=== PATIENT | male | born 1960 | race Caucasian/White ===

== ENCOUNTER → 2018-03-25 | Outpatient (CLI) | payer BC ==
[2018-03-25 09:13] LABS: HEMOGLOBIN 15.6 g/dl (13.5-17.5); MEAN CORPUSCULAR HEMOGLOBIN 30.5 pg (27.0-33.0); MEAN CORPUSCULAR HGB CONC 35.5 g/dl (32.0-36.5); MEAN CORPUSCULAR VOLUME 85.9 fl (80.0-96.0); PLATELET COUNT, AUTOMATED 168 10^3/uL (150-450); RED BLOOD COUNT 5.12 10^6/uL (4.30-6.10); RED CELL DISTRIBUTION WIDTH 13.2 % (11.5-14.5); WHITE BLOOD COUNT 10.1 10^3/uL (4.0-10.0)
[2018-03-25 09:36] LABS: ANION GAP 7 MEQ/L (8-16); BLOOD UREA NITROGEN 8 MG/DL (7-18); CALCIUM LEVEL 8.6 MG/DL (8.5-10.1); CARBON DIOXIDE LEVEL 30 MEQ/L (21-32); CHLORIDE LEVEL 103 MEQ/L (98-107); CHOLESTEROL LEVEL 145 MG/DL (<200); CHOLESTEROL RISK RATIO 3.536 (<5); CREATININE FOR GFR 0.74 MG/DL (0.70-1.30); GLOMERULAR FILTRATION RATE > 60.0 (>56); GLUCOSE, FASTING 108 MG/DL (70-100); HDL CHOLESTEROL 41 MG/DL (>40); LDL CHOLESTEROL 82.8 MG/DL (<100); NON-HDL-C 104 MG/DL; POTASSIUM SERUM 3.8 MEQ/L (3.5-5.1); SODIUM LEVEL 140 MEQ/L (136-145); TRIGLYCERIDES LEVEL 106 MG/DL (<150)
== END ==
LOC: M WUC 08:11
DX: I25.10 Atherosclerotic heart disease of native coronary artery without angina pectoris (principal); E78.5 Hyperlipidemia, unspecified
CPT/HCPCS: 80061

== ENCOUNTER 2019-10-17 05:05 | Emergency (ER) | payer BC ==
[~2019-10-17] VITALS: Ht 170.2 cm; Wt 80.9 kg
[~2019-10-17 05:05] MED LIST: ALDA25TA2 PO; ALTA1CAP3 PO; AMLO25TA PO; ASPI81TA85 PO; CRES20TA2 PO; DOXE75CA2 PO; FURO40TA2 PO; LISI-538 PO; LORA1TAB4 PO; LORA2TAB14 PO; NICO7DIS2 TD; OMEP1CAP73 PO; RAMI1CAP24 PO; SERT-141 PO; TRAZ-252 PO; TRAZ1TAB6 PO; ZOLO50TA PO
[2019-10-17] MEDS ORDERED: HYDR12.55 PO (05:22)
[2019-10-17] MEDS ORDERED: ROSU20TA5 PO (05:22)
[2019-10-17] MEDS ORDERED: LOSA100T50 PO (05:22)
[2019-10-17] MEDS ORDERED: AMLO25TA PO (05:22)
[2019-10-17 06:17] LABS: BASO # 0.1 10^3/uL (0.0-0.2); BASO % 0.5 % (0.0-1.0); EOS # 0.2 10^3/uL (0.0-0.5); EOS % 1.4 % (0.0-3.0); HEMATOCRIT 45.5 % (42.0-52.0); HEMOGLOBIN 14.7 g/dl (13.5-17.5); LYMPH # 1.5 10^3/uL (1.5-5.0); LYMPH % 14.3 % (24.0-44.0); MEAN CORPUSCULAR HGB CONC 32.3 g/dl (32.0-36.5); MEAN CORPUSCULAR VOLUME 89.7 fl (80.0-96.0); MONO # 1.4 10^3/uL (0.0-0.8); MONO % 13.6 % (0.0-5.0); NEUTROPHILS # 7.4 10^3/uL (1.5-8.5); NEUTROPHILS % 69.8 % (36.0-66.0); PLATELET COUNT, AUTOMATED 169 10^3/uL (150-450); RED BLOOD COUNT 5.07 10^6/uL (4.30-6.10); WHITE BLOOD COUNT 10.6 10^3/uL (4.0-10.0)
[2019-10-17 06:38] LABS: ALBUMIN 3.5 GM/DL (3.2-5.2); ALT/SGPT 30 U/L (12-78); BILIRUBIN,DIRECT 0.2 MG/DL (0.0-0.2); BILIRUBIN,TOTAL 0.6 MG/DL (0.2-1.0); BLOOD UREA NITROGEN 11 MG/DL (7-18); CALCIUM LEVEL 8.8 MG/DL (8.5-10.1); CARBON DIOXIDE LEVEL 29 MEQ/L (21-32); CHLORIDE LEVEL 108 MEQ/L (98-107); CREATININE FOR GFR 0.65 MG/DL (0.70-1.30); GLOMERULAR FILTRATION RATE > 60.0 (>56); GLUCOSE, FASTING 112 MG/DL (70-100); LIPASE 123 U/L (73-393); SODIUM LEVEL 142 MEQ/L (136-145); TOTAL PROTEIN 7.4 GM/DL (6.4-8.2)
[2019-10-17 07:04] LABS: CK-MB VALUE MASS 1.6 NG/ML (<3.6); CPK CREATINE PHOSPHOKINASE 142 U/L (39-308); MB/CK RELATIVE INDEX 1.13 (< OR =4); TROPONIN I < 0.02 NG/ML (< 0.10)
--- NOTE | 2019-10-17 08:12 | REP ---
Chest x-ray: Two views. History: Epigastric pain and shortness of breath. Comparison chest x-ray: January 31, 2016. Findings: The patient is status post prior median sternotomy. The lungs are well inflated and clear. The pleural angles are sharp. Heart size is normal. Pulmonary vasculature is not increased. No significant bony abnormality is seen. Monitoring electrodes are noted. Impression: No acute disease. Prior sternotomy. Electronically Signed by Eben Saunders MD 10/17/2019 08:03 A
[2019-10-17] MEDS ORDERED: NS 1,000 ML IV ONE (08:15)
[2019-10-17] MEDS ORDERED: ALBUTEROL SULFATE 2.5 MG/0.5 ML INH NEB SOLN NEB ONE (08:15)
[2019-10-17] MEDS ORDERED: GI COCKTAIL 50ML BTL(HYOSCYAMINE/MAALOX/LIDOCAINE VISCOUS)(1:3:1) PO ONE (08:30)
[2019-10-17] MEDS ORDERED: amLODIPine 5 MG TAB PO ONE (12:00)
[2019-10-17 12:01] VITALS: BP 166/89
[2019-10-17 12:14] LABS: CK-MB VALUE MASS 1.2 NG/ML (<3.6); MB/CK RELATIVE INDEX 1.19 (< OR =4); TROPONIN I 0.02 NG/ML (< 0.10)
[2019-10-17] MEDS ORDERED: ZANT150T40 PO (12:27)
[2019-10-17 12:45] VITALS: BP 169/94
--- NOTE | 2019-10-17 20:27 | ECGEPIP ---
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
--- NOTE | 2019-10-17 20:30 | ECGEPIP ---
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
== END 2019-10-17 13:07 | disposition home or self-care (01) ==
LOC: M ED 05:05
DX: R10.13 Epigastric pain (principal); I10 Essential (primary) hypertension; F41.9 Anxiety disorder, unspecified; Z86.73 Personal history of transient ischemic attack (TIA), and cerebral infarction without residual deficits; Z95.1 Presence of aortocoronary bypass graft; F17.210 Nicotine dependence, cigarettes, uncomplicated; Z79.83 Long term (current) use of bisphosphonates; Z79.899 Other long term (current) drug therapy

== ENCOUNTER → 2021-01-05 | Outpatient (REF) | payer BC ==
[~2021-01-05] MED LIST changes: -ASPI81TA85 PO; +ASPI81TA86 PO; +HYDR12.55 PO; -LISI-538 PO; +LISI20TA33 PO; +LOSA100T50 PO; +ROSU20TA5 PO; +ZANT150T40 PO
[2021-01-05 18:18] LABS: BASO # 0.1 10^3/uL (0.0-0.2); BASO % 0.6 % (0.0-1.0); EOS # 0.2 10^3/uL (0.0-0.5); EOS % 1.7 % (0.0-3.0); HEMATOCRIT 46.8 % (42.0-52.0); HEMOGLOBIN 16.1 g/dl (13.5-17.5); LYMPH # 2.4 10^3/uL (1.5-5.0); LYMPH % 20.4 % (24.0-44.0); MEAN CORPUSCULAR HEMOGLOBIN 31.9 pg (27.0-33.0); MEAN CORPUSCULAR HGB CONC 34.4 g/dl (32.0-36.5); MEAN CORPUSCULAR VOLUME 92.7 fl (80.0-96.0); MONO # 1.5 10^3/uL (0.0-0.8); MONO % 12.8 % (2.0-8.0); NEUTROPHILS # 7.6 10^3/uL (1.5-8.5); NEUTROPHILS % 64.1 % (36.0-66.0); PLATELET COUNT, AUTOMATED 204 10^3/uL (150-450); RED BLOOD COUNT 5.05 10^6/uL (4.30-6.10)
[2021-01-05 18:51] LABS: ERYTHROCYTE SEDIMENTATION RATE 8 mm/hr (0-20)
[2021-01-05 18:52] LABS: WHITE BLOOD COUNT 11.8 10^3/uL (4.0-10.0)
[2021-01-05 21:43] LABS: ALBUMIN 4.3 GM/DL (3.2-5.2); ALT/SGPT 52 U/L (12-78); BILIRUBIN,TOTAL 0.6 MG/DL (0.2-1.0); BLOOD UREA NITROGEN 14 MG/DL (7-18); CALCIUM LEVEL 10.7 MG/DL (8.8-10.2); CARBON DIOXIDE LEVEL 25 MEQ/L (21-32); CHLORIDE LEVEL 102 MEQ/L (98-107); CHOLESTEROL LEVEL 169 MG/DL (<200); CHOLESTEROL RISK RATIO 3.129 (<5); CREATININE FOR GFR 0.77 MG/DL (0.70-1.30); GLOMERULAR FILTRATION RATE > 60.0 (>49); GLUCOSE, FASTING 100 MG/DL (70-100); HDL CHOLESTEROL 54 MG/DL (>40); LDL CHOLESTEROL 85 MG/DL (<100); NON-HDL-C 115 MG/DL; POTASSIUM SERUM 4.2 MEQ/L (3.5-5.1); SODIUM LEVEL 135 MEQ/L (136-145); TOTAL PROTEIN 8.3 GM/DL (6.4-8.2); TRIGLYCERIDES LEVEL 151 MG/DL (<150)
[2021-01-06 13:27] LABS: TOTAL 25(OH) VITAMIN D 8.4 NG/ML (30.0-100.0)
[2021-01-07 15:07] LABS: ANTINUCLEAR ANTIBODIES DIRECT Negative (Negative)
== END ==
LOC: M LAB REF 16:32
PROVIDERS: ATTEND Pediatrics
DX: M15.9 Polyosteoarthritis, unspecified (principal); I10 Essential (primary) hypertension; E78.5 Hyperlipidemia, unspecified

== ENCOUNTER → 2021-01-18 | Outpatient (CLI) | payer BC ==
[~2021-01-18] MED LIST changes: +ISOVUE-370 76% 100ML VIAL As Ordered ONE
--- NOTE | 2021-01-18 08:18 | REPVR ---
PROCEDURE INFORMATION: Exam: CT Neck With Contrast Exam date and time: 01/18/2021 7:15 AM Age: 60 years old Clinical indication: Mass, lump, or swelling in neck; Additional info: Mass of neck left TECHNIQUE: Imaging protocol: Computed tomography images of the neck with contrast. Radiation optimization: All CT scans at this facility use at least one of these dose optimization techniques: automated exposure control; mA and/or kV adjustment per patient size (includes targeted exams where dose is matched to clinical indication); or iterative reconstruction. Contrast material: ISOVUE 370; Contrast volume: 75 ml; Contrast route: INTRAVENOUS (IV); COMPARISON: MRA CAROTID W/O FOL WITH 12/02/2015 9:32 AM FINDINGS: Paranasal sinuses: Retention cyst in the left maxillary sinus. Nasopharynx: Unremarkable. Oropharynx: Ill-defined nodular mucosal fullness along the right aspect the oropharynx with effacement of normal adjacent planes. Hypopharynx: Unremarkable. Larynx: Unremarkable. Normal epiglottis. Retropharyngeal space: Unremarkable. Submandibular/Parotid glands: Normal. Glands are normal in size. Thyroid: Normal. No enlarged or calcified nodules. Lymph nodes: Unremarkable. No lymphadenopathy. Trachea: Visualized trachea is unremarkable. Lungs: Unremarkable as visualized. Bones/joints: Multilevel degenerative disease. Stenosis of the spinal canal at several levels most pronounced at C3-C4, C5-C6, and C6-C7. Multilevel neural foraminal stenosis status post median sternotomy. Vasculature: Adjacent centrally necrotic lymphadenopathy appears to encase and occlude right jugular vein. Soft tissues: Unremarkable. No significant soft tissue swelling. IMPRESSION: Ill-defined nodular mucosal fullness along the right aspect the oropharynx with effacement of normal adjacent planes. Adjacent centrally necrotic lymphadenopathy appears to encase and occlude right jugular vein. Neoplastic etiology is favored. Electronically signed by: Jose Causey On 01/18/2021 08:17:44 AM
== END ==
LOC: M RAD 06:22
PROVIDERS: ATTEND Pediatrics
DX: R22.1 Localized swelling, mass and lump, neck (principal)
CPT/HCPCS: 70491; Q9967

== ENCOUNTER → 2021-01-31 | Outpatient (CLI) | payer BC ==
[~2021-01-31] MED LIST changes: -ISOVUE-370 76% 100ML VIAL As Ordered ONE
--- NOTE | 2021-02-01 08:08 | REP ---
INDICATION: NICOTINE DEPEND COMPARISON: None. TECHNIQUE: Axial noncontrast images from the thoracic inlet to the upper abdomen using low-dose lung screening technique (LDCT). FINDINGS: The bilateral lung you are relatively well aerated, essentially symmetric and clear. No consolidation, suspicious nodule or mass lesion. No effusion. No pneumothorax. Tracheobronchial tree is patent. IMPRESSION: Lung-RADS category 1. No suspicious nodule or mass lesion. Management recommendations include annual low-dose CT surveillance. <Electronically signed by Félix Figueredo > 02/01/21 [id number]
== END ==
LOC: M RAD 06:52
PROVIDERS: ATTEND Pediatrics
DX: Z12.2 Encounter for screening for malignant neoplasm of respiratory organs (principal); F17.210 Nicotine dependence, cigarettes, uncomplicated

== ENCOUNTER → 2021-03-03 | Outpatient (CLI) | payer BC ==
--- NOTE | 2021-03-03 08:41 | REP ---
INDICATION: ABD PULSITILE MASS COMPARISON: None. TECHNIQUE: Real time low scale ultrasound examination using curved array transducer. FINDINGS: Abdominal aortic aneurysm is identified extending from the level of the renal arteries through the distal aorta and measures approximately 6.5 x 7.5 cm maximal diameter with mural thrombus and a patent residual lumen of roughly 3.5 x 3.8 cm diameter. Proximal aorta: 3.0 x 3.2 cm Aorta at renal arteries: 4.5 x 4.3 cm Mid aorta: 6.5 x 7.4 cm Distal aorta: 5.2 x 5.7 cm Right common iliac artery: 1.0 x 1.3 cm Left common iliac artery: 1.0 x 1.2 cm IMPRESSION: Abdominal aortic aneurysm. <Electronically signed by Félix Figueredo > 03/03/21 [id number]
== END ==
LOC: M RAD 07:13
PROVIDERS: ATTEND Pediatrics
DX: R09.89 Other specified symptoms and signs involving the circulatory and respiratory systems (principal)

== ENCOUNTER → 2021-03-15 | Outpatient (CLI) | payer BC ==
[~2021-03-15] MED LIST changes: +BUPR300T92 PO; +HYDR-3490 PO; +HYDR1LIQ PO; +LIDO2SOL9 SS; +LOSA100T45 PO; -LOSA100T50 PO; +MAGN400T2 PO; +MELO15TA28 PO; +MORP-69 PO; +NYST50SS PO; +ONDA-84 PO; +OXYC1SOL3 PO; +PROC10TA5 PO; +ROSU40TA4 PO; +SPIR-10 PO
== END ==
LOC: M ONCR 07:36
PROVIDERS: ATTEND General Practice
DX: C09.0 Malignant neoplasm of tonsillar fossa (principal); E78.5 Hyperlipidemia, unspecified; F17.210 Nicotine dependence, cigarettes, uncomplicated; F41.9 Anxiety disorder, unspecified; I10 Essential (primary) hypertension; I71.4 Abdominal aortic aneurysm, without rupture; Z79.899 Other long term (current) drug therapy; Z86.73 Personal history of transient ischemic attack (TIA), and cerebral infarction without residual deficits
CPT/HCPCS: 31575; G0463

== ENCOUNTER 2021-04-22 07:36 | Outpatient (RCR) | payer BC ==
[~2021-04-22 07:36] MED LIST changes: -HYDR1LIQ PO; -LIDO2SOL9 SS; -LOSA100T45 PO; +LOSA100T50 PO; -MAGN400T2 PO; -MORP-69 PO; -NYST50SS PO; -ONDA-84 PO; +ONDA8TAB10 PO; -OXYC1SOL3 PO; +PROC10TA4 PO; -PROC10TA5 PO
[2021-04-25] MEDS ORDERED: OXYC1SOL3 PO (08:36)
== END 2021-04-23 ==
LOC: M ONCR 07:36
PROVIDERS: ATTEND General Practice
DX: C09.0 Malignant neoplasm of tonsillar fossa (principal)

== ENCOUNTER 2021-05-02 11:25 | Emergency (ER) | payer BC ==
[~2021-05-02] VITALS: Ht 172.7 cm; Wt 81.2 kg
[~2021-05-02 11:25] MED LIST changes: +LIDO2SOL9 SS; +OXYC1SOL3 PO
[2021-05-02] MEDS ORDERED: NS 1,000 ML IV SCH (13:05)
[2021-05-02] MEDS ORDERED: NS 1,000 ML IV ONE (13:35)
[2021-05-02 13:52] LABS: BASO % 0.6 % (0.0-1.0); EOS % 0.3 % (0.0-3.0); HEMATOCRIT 39.6 % (42.0-52.0); HEMOGLOBIN 13.5 g/dl (13.5-17.5); LYMPH # 0.8 10^3/uL (1.5-5.0); LYMPH % 12.6 % (24.0-44.0); MEAN CORPUSCULAR HEMOGLOBIN 31.8 pg (27.0-33.0); MEAN CORPUSCULAR HGB CONC 34.1 g/dl (32.0-36.5); MEAN CORPUSCULAR VOLUME 93.2 fl (80.0-96.0); MONO # 1.2 10^3/uL (0.0-0.8); MONO % 17.5 % (2.0-8.0); NEUTROPHILS # 4.6 10^3/uL (1.5-8.5); NEUTROPHILS % 68.6 % (36.0-66.0); PLATELET COUNT, AUTOMATED 106 10^3/uL (150-450); RED BLOOD COUNT 4.25 10^6/uL (4.30-6.10); WHITE BLOOD COUNT 6.7 10^3/uL (4.0-10.0)
[2021-05-02 14:04] LABS: INR 1.06; PARTIAL THROMBOPLASTIN TIME 31.5 SECONDS (25.9-37.0); PROTHROMBIN TIME 14.2 SECONDS (12.7-14.5)
--- NOTE | 2021-05-02 15:51 | REP ---
INDICATION: Abdominal Pain. COMPARISON: 10/17/2019 TECHNIQUE: Two views FINDINGS: The lungs are free of active parenchymal disease. Bilateral nipple shadows are noted. Heart is not enlarged. Postoperative changes after CABG noted. There is no failure or effusion. No hilar or mediastinal adenopathy. IMPRESSION: No active process and no interval change compared with the previous study. <Electronically signed by Jeronimo Colvin > 05/02/21 [id number]
[2021-05-02 17:01] LABS: ALBUMIN 2.9 GM/DL (3.2-5.2); ALT/SGPT 30 U/L (12-78); BILIRUBIN,DIRECT 0.2 MG/DL (0.0-0.2); BILIRUBIN,TOTAL 0.4 MG/DL (0.2-1.0); BLOOD UREA NITROGEN 43 MG/DL (7-18); CALCIUM LEVEL 7.3 MG/DL (8.8-10.2); CARBON DIOXIDE LEVEL 22 MEQ/L (21-32); CHLORIDE LEVEL 113 MEQ/L (98-107); CK-MB VALUE MASS 1.5 NG/ML (<3.6); CPK CREATINE PHOSPHOKINASE 41 U/L (39-308); GLUCOSE, FASTING 81 MG/DL (70-100); MB/CK RELATIVE INDEX 3.66 (< OR =4); POTASSIUM SERUM 4.9 MEQ/L (3.5-5.1); SODIUM LEVEL 140 MEQ/L (136-145); TOTAL PROTEIN 5.9 GM/DL (6.4-8.2); TROPONIN I < 0.02 NG/ML (< 0.10)
[2021-05-02 17:58] VITALS: BP 121/75
--- NOTE | 2021-05-02 19:22 | ECGEPIP ---
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
== END 2021-05-02 18:08 | disposition home or self-care (01) ==
LOC: M ED 11:25
DX: I95.9 Hypotension, unspecified (principal); C09.9 Malignant neoplasm of tonsil, unspecified; I10 Essential (primary) hypertension; E78.5 Hyperlipidemia, unspecified; F17.200 Nicotine dependence, unspecified, uncomplicated

== ENCOUNTER → 2021-05-04 | Outpatient (CLI) | payer BC ==
[~2021-05-04] MED LIST changes: +NS 1,000 ML IV ONE
[2021-05-06 08:54] VITALS: BP 101/69
== END ==
LOC: M ONCM 08:20
PROVIDERS: ATTEND General Practice
DX: C09.0 Malignant neoplasm of tonsillar fossa (principal)

== ENCOUNTER → 2021-05-13 | Outpatient (CLI) | payer BC ==
[~2021-05-13] MED LIST changes: +ISOVUE-370 76% 100ML VIAL As Ordered ONE; -NS 1,000 ML IV ONE
--- NOTE | 2021-05-15 10:29 | REP ---
INDICATION: ABD AORTIC ANEURYSM COMPARISON: Correlation with ultrasound dated 03/03/2021 TECHNIQUE: Axial contrast-enhanced images from the lung bases to the pubic symphysis with coronal and sagittal reformations using CT angiogram technique and protocol. Post processing used to create volume rendered 3D CT aortogram. This CT examination was performed using the following dose reduction techniques: Automated exposure control, adjustment of mA and/or kv according to the patient's size, and use of iterative reconstruction technique. FINDINGS: There is an abdominal aortic aneurysm which measures 7.3 cm maximal diameter and appears partially thrombosed with a maximal patent somewhat irregular shaped lumen measuring up to 4.2 cm maximal diameter and surrounding chronic thrombus. The aneurysm slowly begins at the level of the renal arteries measuring roughly 3.6 cm in maximal AP diameter and extending to the iliac bifurcation. No periaortic inflammatory stranding or fluid is identified to suggest rupture. Extensive partially calcified atherosclerotic changes involving the aorta and bilateral iliac arteries are also identified. The origins and proximal portions of the celiac axis, superior mesenteric artery, and solitary bilateral renal arteries all demonstrate relatively normal patent lumen. Liver, spleen, pancreas, gallbladder, bilateral adrenal glands and kidneys are relatively normal for arterial phase enhancement. The enteric system is without obstruction or acute inflammatory process. Pelvis demonstrates normal bladder and age-appropriate prostate/seminal vesicles. No ascites. No free air. No adenopathy. Musculoskeletal structures demonstrate age-related degenerative changes without acute osseous abnormality. Lung bases are clear. IMPRESSION: Significant abdominal aortic aneurysm as described above. <Electronically signed by Félix Figueredo > 05/15/21 [id number]
== END ==
LOC: M RAD 17:38
PROVIDERS: ATTEND Surgery
DX: I71.4 Abdominal aortic aneurysm, without rupture (principal)
CPT/HCPCS: 74174; Q9967

== ENCOUNTER → 2021-05-24 | Outpatient (RCR) | payer BC ==
[~2021-05-24] MED LIST changes: +HYDR1LIQ PO; -ISOVUE-370 76% 100ML VIAL As Ordered ONE; +LOSA100T45 PO; -LOSA100T50 PO; +MAGN400T2 PO; +MORP-69 PO; +NS 1,000 ML IV ONE; +NYST50SS PO; +ONDA-84 PO; -ONDA8TAB10 PO; -PROC10TA4 PO; +PROC10TA5 PO
== END ==
LOC: M ONCR 04-25 08:34
PROVIDERS: ATTEND General Practice
DX: C09.0 Malignant neoplasm of tonsillar fossa (principal)

== ENCOUNTER 2021-05-27 07:32 | Outpatient (RCR) | payer BC ==
[~2021-05-27 07:32] MED LIST changes: -HYDR1LIQ PO; -LOSA100T45 PO; +LOSA100T50 PO; -MAGN400T2 PO; -NS 1,000 ML IV ONE; -NYST50SS PO; -ONDA-84 PO; +ONDA8TAB10 PO; +PROC10TA4 PO; -PROC10TA5 PO
[2021-06-02] MEDS ORDERED: HYDR1LIQ PO (11:43)
[2021-06-06] MEDS ORDERED: NYST50SS PO (10:57)
== END 2021-06-23 ==
LOC: M ONCR 07:32
PROVIDERS: ATTEND General Practice
DX: C09.0 Malignant neoplasm of tonsillar fossa (principal)

== ENCOUNTER 2021-06-07 06:56 | Emergency (ER) | payer BC ==
[~2021-06-07] VITALS: Ht 172.7 cm; Wt 71.5 kg
[~2021-06-07 06:56] MED LIST changes: +HYDR1LIQ PO; +NYST50SS PO
[2021-06-07] MEDS ORDERED: MULTIVITAMIN -ADULT INJECTION 10 ML, THIAMINE INJection 100 MG, FOLIC ACID 1 MG in NS 1... IV ONE (10:15)
[2021-06-07 10:35] LABS: BASO # 0.1 10^3/uL (0.0-0.2); EOS # 0.1 10^3/uL (0.0-0.5); EOS % 0.7 % (0.0-3.0); HEMOGLOBIN 12.8 g/dl (13.5-17.5); LYMPH # 0.6 10^3/uL (1.5-5.0); LYMPH % 7.9 % (24.0-44.0); MEAN CORPUSCULAR HGB CONC 35.6 g/dl (32.0-36.5); MEAN CORPUSCULAR VOLUME 92.8 fl (80.0-96.0); MONO # 1.2 10^3/uL (0.0-0.8); MONO % 17.1 % (2.0-8.0); NEUTROPHILS # 5.1 10^3/uL (1.5-8.5); NEUTROPHILS % 72.6 % (36.0-66.0); PLATELET COUNT, AUTOMATED 133 10^3/uL (150-450); RED BLOOD COUNT 3.88 10^6/uL (4.30-6.10); WHITE BLOOD COUNT 7.1 10^3/uL (4.0-10.0)
[2021-06-07] MEDS ORDERED: NS 1,000 ML IV ONE (10:40)
[2021-06-07 11:05] LABS: ALBUMIN 3.3 GM/DL (3.2-5.2); BILIRUBIN,DIRECT 0.2 MG/DL (0.0-0.2); BILIRUBIN,TOTAL 0.6 MG/DL (0.2-1.0); MAGNESIUM LEVEL 1.4 MG/DL (1.8-2.4); TOTAL PROTEIN 7.2 GM/DL (6.4-8.2)
[2021-06-07 11:10] LABS: FERRITIN 900 NG/ML (26-388); IRON (FE) 89 UG/DL (65-175); PERCENT SATURATION 34.9 % (19.7-50.0); TOTAL IRON BINDING CAPACITY 255 UG/DL (250-450)
[2021-06-07 11:15] LABS: VITAMIN B12 LEVEL > 2000 PG/ML (247-911)
[2021-06-07 11:16] LABS: FOLATE 5.5 NG/ML (>5.4)
[2021-06-07] MEDS ORDERED: MAG SULF 1GM/100ML (MAG RUN) 1 GM in IV 1 EA IV ONE (11:35)
[2021-06-07 15:21] VITALS: BP 128/72
== END 2021-06-07 15:23 | disposition home or self-care (01) ==
LOC: M ED 06:56
DX: E86.0 Dehydration (principal); E83.42 Hypomagnesemia; N17.9 Acute kidney failure, unspecified; R53.1 Weakness; R06.02 Shortness of breath; R11.0 Nausea; Z95.1 Presence of aortocoronary bypass graft
CPT/HCPCS: 80047; 80076; 82607; 82728; 82746; 83550; 83735; 85025; 96361; 96365; 96375; 99284; J3411; J3475

== ENCOUNTER → 2021-08-22 | Outpatient (CLI) | payer BC ==
[~2021-08-22] MED LIST changes: +LOSA100T45 PO; -LOSA100T50 PO; +MAGN400T2 PO; +ONDA-84 PO; -ONDA8TAB10 PO; -PROC10TA4 PO; +PROC10TA5 PO
== END ==
LOC: M PLARAD 08:39
PROVIDERS: ATTEND General Practice
DX: C09.0 Malignant neoplasm of tonsillar fossa (principal)

== ENCOUNTER → 2021-08-22 | Outpatient (CLI) | payer BC | LOC: M ONCR 08:00 | PROVIDERS: ATTEND General Practice | DX: C09.0 Malignant neoplasm of tonsillar fossa (principal); Z92.3 Personal history of irradiation; F17.210 Nicotine dependence, cigarettes, uncomplicated; Z79.891 Long term (current) use of opiate analgesic; Z79.899 Other long term (current) drug therapy ==

== ENCOUNTER → 2021-10-26 | Outpatient (CLI) | payer BC, OTHER | LOC: M ONCR 08:06 | PROVIDERS: ATTEND General Practice | DX: C09.0 Malignant neoplasm of tonsillar fossa (principal); F17.210 Nicotine dependence, cigarettes, uncomplicated; Z92.3 Personal history of irradiation; Z92.21 Personal history of antineoplastic chemotherapy; Z79.899 Other long term (current) drug therapy | CPT/HCPCS: 31575; G0463 ==

== ENCOUNTER → 2021-12-09 | Outpatient (CLI) | payer OTHER ==
[2021-12-09 09:30] LABS: CREATININE FOR GFR 1.6 MG/DL (0.70-1.30); POTASSIUM SERUM 4.8 MEQ/L (3.5-5.1)
== END ==
LOC: M LAB 08:37
PROVIDERS: ATTEND Surgery
DX: Z01.812 Encounter for preprocedural laboratory examination (principal)

== ENCOUNTER → 2021-12-14 | Outpatient (CLI) | payer OTHER ==
[~2021-12-14] MED LIST changes: +ISOVUE-370 76% 100ML VIAL ONE
== END ==
LOC: M PLAIMG 09:52
PROVIDERS: ATTEND Surgery
DX: I71.4 Abdominal aortic aneurysm, without rupture (principal)
CPT/HCPCS: 74174; Q9967

== ENCOUNTER → 2021-12-28 | Outpatient (CLI) | payer OTHER ==
[~2021-12-28] MED LIST changes: -ISOVUE-370 76% 100ML VIAL ONE
== END ==
LOC: M ONCR 07:15
PROVIDERS: ATTEND General Practice
DX: C09.0 Malignant neoplasm of tonsillar fossa (principal); Z87.891 Personal history of nicotine dependence; Z92.21 Personal history of antineoplastic chemotherapy; Z92.3 Personal history of irradiation
CPT/HCPCS: 31575; G0463

== ENCOUNTER → 2022-01-01 | Outpatient (REF) | payer OTHER | LOC: M WUC 18:07 | PROVIDERS: ATTEND Physician Assistant | DX: R50.9 Fever, unspecified (principal) ==

== ENCOUNTER → 2022-03-29 | Outpatient (CLI) | payer OTHER | LOC: M ONCR 08:55 | PROVIDERS: ATTEND General Practice | DX: Z08 Encounter for follow-up examination after completed treatment for malignant neoplasm (principal); K13.70 Unspecified lesions of oral mucosa; L59.8 Other specified disorders of the skin and subcutaneous tissue related to radiation; Z85.818 Personal history of malignant neoplasm of other sites of lip, oral cavity, and pharynx; Z87.891 Personal history of nicotine dependence; Z92.21 Personal history of antineoplastic chemotherapy; Z92.3 Personal history of irradiation; Z79.899 Other long term (current) drug therapy | CPT/HCPCS: 31575; G0463 ==

== ENCOUNTER → 2022-04-27 | Outpatient (CLI) | payer OTHER ==
[~2022-04-27] MED LIST changes: +ISOVUE-370 76% 100ML VIAL As Ordered ONE
== END ==
LOC: M RAD 08:28
PROVIDERS: ATTEND General Practice
DX: R91.8 Other nonspecific abnormal finding of lung field (principal); C09.0 Malignant neoplasm of tonsillar fossa
CPT/HCPCS: 70491; 71260; Q9967

== ENCOUNTER → 2022-07-14 | Outpatient (CLI) | payer OTHER ==
[~2022-07-14] MED LIST changes: -ISOVUE-370 76% 100ML VIAL As Ordered ONE
== END ==
LOC: M ONCR 10:24
PROVIDERS: ATTEND General Practice
DX: C09.0 Malignant neoplasm of tonsillar fossa (principal); D10.9 Benign neoplasm of pharynx, unspecified; Z79.1 Long term (current) use of non-steroidal anti-inflammatories (NSAID); Z79.899 Other long term (current) drug therapy; Z87.891 Personal history of nicotine dependence; Z92.21 Personal history of antineoplastic chemotherapy; Z92.3 Personal history of irradiation
CPT/HCPCS: 31575; G0463

== ENCOUNTER → 2022-10-13 | Outpatient (CLI) | payer BC, OTHER ==
[~2022-10-13] MED LIST changes: +NYST-38 PO; -NYST50SS PO
== END ==
LOC: M ONCR 07:27
PROVIDERS: ATTEND General Practice
DX: C09.0 Malignant neoplasm of tonsillar fossa (principal); R91.8 Other nonspecific abnormal finding of lung field; Z79.1 Long term (current) use of non-steroidal anti-inflammatories (NSAID); Z79.899 Other long term (current) drug therapy; Z87.891 Personal history of nicotine dependence; Z92.21 Personal history of antineoplastic chemotherapy; Z92.3 Personal history of irradiation
CPT/HCPCS: 31575; G0463

== ENCOUNTER → 2022-10-19 | Outpatient (CLI) | payer BC ==
[~2022-10-19] MED LIST changes: +ISOVUE-370 76% 100ML VIAL As Ordered ONE
== END ==
LOC: M RAD 16:41
PROVIDERS: ATTEND General Practice
DX: C09.0 Malignant neoplasm of tonsillar fossa (principal); J44.9 Chronic obstructive pulmonary disease, unspecified; R91.8 Other nonspecific abnormal finding of lung field

== ENCOUNTER → 2022-12-21 | Outpatient (CLI) | payer BC | LOC: M RAD 10:31 | PROVIDERS: ATTEND Surgery | DX: I71.40 Abdominal aortic aneurysm, without rupture, unspecified (principal) | CPT/HCPCS: 74174; Q9967 ==

== ENCOUNTER → 2023-01-11 | Outpatient (CLI) | payer BC ==
[~2023-01-11] MED LIST changes: -ISOVUE-370 76% 100ML VIAL As Ordered ONE; +LIDO2SOBTL SS; -LIDO2SOL9 SS
== END ==
LOC: M ONCR 07:26
PROVIDERS: ATTEND General Practice
DX: Z08 Encounter for follow-up examination after completed treatment for malignant neoplasm (principal); Z85.819 Personal history of malignant neoplasm of unspecified site of lip, oral cavity, and pharynx; R91.8 Other nonspecific abnormal finding of lung field; Z79.1 Long term (current) use of non-steroidal anti-inflammatories (NSAID); Z79.899 Other long term (current) drug therapy; Z87.891 Personal history of nicotine dependence; Z92.21 Personal history of antineoplastic chemotherapy; Z92.3 Personal history of irradiation
CPT/HCPCS: 31575; G0463

== ENCOUNTER → 2023-07-06 | Outpatient (CLI) | payer BC ==
[~2023-07-06] MED LIST changes: +LORA1TAB23 PO; -LORA1TAB4 PO; -LOSA100T45 PO; +LOSA100T46 PO; -ROSU20TA5 PO; +ROSU20TA61 PO
== END ==
LOC: M PLAIMG 11:50
PROVIDERS: ATTEND General Practice
DX: D38.1 Neoplasm of uncertain behavior of trachea, bronchus and lung (principal); R91.1 Solitary pulmonary nodule

== ENCOUNTER → 2023-07-25 | Outpatient (CLI) | payer BC | LOC: M ONCR 07:26 | PROVIDERS: ATTEND General Practice | DX: R91.1 Solitary pulmonary nodule (principal); Z85.818 Personal history of malignant neoplasm of other sites of lip, oral cavity, and pharynx; Z71.2 Person consulting for explanation of examination or test findings; Z79.1 Long term (current) use of non-steroidal anti-inflammatories (NSAID); Z79.899 Other long term (current) drug therapy; Z87.891 Personal history of nicotine dependence; Z92.21 Personal history of antineoplastic chemotherapy; Z92.3 Personal history of irradiation | CPT/HCPCS: 31575; G0463 ==

== ENCOUNTER → 2023-08-10 | Outpatient (CLI) | payer BC ==
[~2023-08-10] MED LIST changes: +HOME MED LIST COMPLETE! XX SCH; +LIDOCAINE 1% MDV 20ML VIAL As Ordered ONE
[2023-08-10 08:10] VITALS: TEMP 98.2
[2023-08-10 11:15] VITALS: BP 118/81; O2SAT 96
== END ==
LOC: M IRPRO 07:57
PROVIDERS: ATTEND General Practice
DX: R91.1 Solitary pulmonary nodule (principal); J95.811 Postprocedural pneumothorax; Z95.5 Presence of coronary angioplasty implant and graft

== ENCOUNTER → 2023-10-26 | Outpatient (CLI) | payer BC, OTHER, SELFPAY ==
[~2023-10-26] MED LIST changes: -HOME MED LIST COMPLETE! XX SCH; +LIDO100S29 SS; -LIDO2SOBTL SS; -LIDOCAINE 1% MDV 20ML VIAL As Ordered ONE
== END ==
LOC: M ONCR 07:41
PROVIDERS: ATTEND General Practice
DX: Z08 Encounter for follow-up examination after completed treatment for malignant neoplasm (principal); Z85.818 Personal history of malignant neoplasm of other sites of lip, oral cavity, and pharynx; Z87.891 Personal history of nicotine dependence; Z71.2 Person consulting for explanation of examination or test findings; Z79.1 Long term (current) use of non-steroidal anti-inflammatories (NSAID); Z79.899 Other long term (current) drug therapy; Z92.21 Personal history of antineoplastic chemotherapy; Z92.3 Personal history of irradiation
CPT/HCPCS: 31575; G0463

== ENCOUNTER → 2024-03-28 | Outpatient (CLI) | payer OTHER ==
[~2024-03-28] MED LIST changes: +BUPR-597 PO; -BUPR300T92 PO; +CEFD1CAP9 PO; +ELIQ5TAB PO; +ISOVUE-370 76% 100ML VIAL As Ordered ONE; +LEVO25TA5 PO; +MAGN500C2 PO; +METO1TAB87 PO; +OSEL75CA2 PO; -RAMI1CAP24 PO; +RAMI5CAP60 PO; -ROSU40TA4 PO; +ROSU40TA63 PO
== END ==
LOC: M RAD 14:37
PROVIDERS: ATTEND Internal Medicine Medical Oncology
DX: R91.8 Other nonspecific abnormal finding of lung field (principal); C09.9 Malignant neoplasm of tonsil, unspecified
CPT/HCPCS: 71260; Q9967

== ENCOUNTER → 2024-06-02 | Outpatient (CLI) | payer OTHER ==
[~2024-06-02] MED LIST changes: -ISOVUE-370 76% 100ML VIAL As Ordered ONE; -ROSU40TA63 PO; +ROSU40TA81 PO
== END ==
LOC: M PLARAD 12:10
PROVIDERS: ATTEND Internal Medicine Medical Oncology
DX: C09.9 Malignant neoplasm of tonsil, unspecified (principal)
CPT/HCPCS: 78815; A9552

== ENCOUNTER 2024-06-23 06:57 | Emergency (ER) | payer OTHER ==
[~2024-06-23] VITALS: Ht 167.6 cm; Wt 64.4 kg
[2024-06-23] MEDS: LIDOCAINE 4% CREAM 5GM (LMX4) TOP ONE (08:18)
[2024-06-23 08:45] VITALS: BP 90/60; TEMP 97.1; O2SAT 97
[2024-06-23] MEDS ORDERED: TRAM50TA2 PO (09:08)
== END 2024-06-23 09:17 | disposition home or self-care (01) ==
LOC: M ED 06:57
DX: M19.011 Primary osteoarthritis, right shoulder (principal); I10 Essential (primary) hypertension; E03.9 Hypothyroidism, unspecified; Z87.891 Personal history of nicotine dependence; Z85.21 Personal history of malignant neoplasm of larynx; Z79.01 Long term (current) use of anticoagulants; Z79.899 Other long term (current) drug therapy

== ENCOUNTER → 2024-06-27 | Outpatient (CLI) | payer OTHER ==
[~2024-06-27] MED LIST changes: +LIDOCAINE 1% MDV 20ML VIAL As Ordered ONE; -ROSU20TA61 PO; +ROSU20TA86 PO; +TRAM50TA2 PO
[2024-06-27 09:40] VITALS: TEMP 97.5
[2024-06-27 09:41] LABS: HEMATOCRIT 42.6 % (42.0-52.0); HEMOGLOBIN 14.6 g/dl (13.5-17.5); MEAN CORPUSCULAR HEMOGLOBIN 32.8 pg (27.0-33.0); MEAN CORPUSCULAR HGB CONC 34.3 g/dl (32.0-36.5); MEAN CORPUSCULAR VOLUME 95.7 fl (80.0-96.0); PLATELET COUNT, AUTOMATED 173 10^3/uL (150-450); RED BLOOD COUNT 4.45 10^6/uL (4.30-6.10)
[2024-06-27 09:54] LABS: INR 1.16; PROTHROMBIN TIME 14.5 SECONDS (12.5-14.5)
[2024-06-27 13:00] VITALS: BP 109/59; O2SAT 98
== END ==
LOC: M IRPRO 09:12
PROVIDERS: ATTEND Dietitian, Registered
DX: R91.1 Solitary pulmonary nodule (principal); C09.9 Malignant neoplasm of tonsil, unspecified; C34.11 Malignant neoplasm of upper lobe, right bronchus or lung

== ENCOUNTER → 2024-07-28 | Outpatient (CLI) | payer OTHER ==
[~2024-07-28] MED LIST changes: -LIDOCAINE 1% MDV 20ML VIAL As Ordered ONE
[2024-07-28 10:04] LABS: FREE T4 0.79 NG/DL (0.89-1.76)
[2024-07-28 10:05] LABS: THYROID STIMULATING HORMONE 8.825 uIU/ML (0.55-4.78)
[2024-07-28 10:07] LABS: FREE T3 3.2 PG/ML (2.3-4.2)
== END ==
LOC: M ONCR 08:30
PROVIDERS: ATTEND General Practice
DX: C34.11 Malignant neoplasm of upper lobe, right bronchus or lung (principal); C09.0 Malignant neoplasm of tonsillar fossa; Z87.891 Personal history of nicotine dependence; Z92.21 Personal history of antineoplastic chemotherapy; Z92.3 Personal history of irradiation; Z79.01 Long term (current) use of anticoagulants; Z79.890 Hormone replacement therapy; Z79.899 Other long term (current) drug therapy
CPT/HCPCS: 36415; 84439; 84443; 84481; G0463

== ENCOUNTER 2024-08-15 07:16 | Outpatient (RCR) | payer OTHER | END 2024-08-23 | LOC: M ONCR 07:16 | PROVIDERS: ATTEND General Practice | DX: Z51.0 Encounter for antineoplastic radiation therapy (principal); C34.11 Malignant neoplasm of upper lobe, right bronchus or lung ==

== ENCOUNTER → 2024-11-13 | Outpatient (CLI) | payer BC ==
[~2024-11-13] MED LIST changes: +ISOVUE-370 76% 100ML VIAL As Ordered ONE; +LEVO50TA5 PO; +LEVO75TA4 PO
== END ==
LOC: M RAD 12:56
PROVIDERS: ATTEND General Practice
DX: C34.11 Malignant neoplasm of upper lobe, right bronchus or lung (principal)
CPT/HCPCS: 71260; Q9967

== ENCOUNTER → 2024-11-28 | Outpatient (CLI) | payer BC, OTHER ==
[~2024-11-28] MED LIST changes: -ISOVUE-370 76% 100ML VIAL As Ordered ONE
== END ==
LOC: M ONCR 08:02
PROVIDERS: ATTEND General Practice
DX: C09.0 Malignant neoplasm of tonsillar fossa (principal); C34.11 Malignant neoplasm of upper lobe, right bronchus or lung; Z79.890 Hormone replacement therapy; Z79.01 Long term (current) use of anticoagulants; Z79.899 Other long term (current) drug therapy; Z87.891 Personal history of nicotine dependence; Z92.21 Personal history of antineoplastic chemotherapy; Z92.3 Personal history of irradiation
CPT/HCPCS: 31575; G0463

== ENCOUNTER 2025-05-10 14:26 | Emergency (ER) | payer BC ==
[~2025-05-10] VITALS: Ht 170.2 cm; Wt 66.2 kg
[~2025-05-10 14:26] MED LIST changes: -BUPR-597 PO; +BUPR-766 PO
[2025-05-10] MEDS: TETANUS/DIPHTH/ACEL. PERTUSSIS 0.5 ML SYR IM.IMMUN ONE (15:38)
[2025-05-10 16:15] VITALS: BP 124/72; TEMP 96.9; O2SAT 99
== END 2025-05-10 16:35 | disposition home or self-care (01) ==
LOC: M ED 14:26
DX: S46.011A Strain of muscle(s) and tendon(s) of the rotator cuff of right shoulder, initial encounter (principal); M25.511 Pain in right shoulder; W10.9XXA Fall (on) (from) unspecified stairs and steps, initial encounter; E78.5 Hyperlipidemia, unspecified; I10 Essential (primary) hypertension; K21.9 Gastro-esophageal reflux disease without esophagitis; Z79.01 Long term (current) use of anticoagulants; Z79.899 Other long term (current) drug therapy; Z23 Encounter for immunization; Y92.009 Unspecified place in unspecified non-institutional (private) residence as the place of occurrence of the external cause; Y93.89 Activity, other specified; Y99.9 Unspecified external cause status

== ENCOUNTER → 2025-05-26 | Outpatient (CLI) | payer BC | LOC: M RAD 08:27 | PROVIDERS: ATTEND General Practice | DX: C34.11 Malignant neoplasm of upper lobe, right bronchus or lung (principal); I25.10 Atherosclerotic heart disease of native coronary artery without angina pectoris; K44.9 Diaphragmatic hernia without obstruction or gangrene ==

== ENCOUNTER → 2025-06-04 | Outpatient (CLI) | payer BC | LOC: M PLARAD 09:40 | PROVIDERS: ATTEND Neuromusculoskeletal Medicine, Sports Medicine | DX: M25.511 Pain in right shoulder (principal); M19.011 Primary osteoarthritis, right shoulder; M75.121 Complete rotator cuff tear or rupture of right shoulder, not specified as traumatic ==

== ENCOUNTER 2025-06-15 08:50 | Outpatient (RCR) | payer BC | END 2025-06-23 | LOC: M PT 08:50 | PROVIDERS: ATTEND Neuromusculoskeletal Medicine, Sports Medicine | DX: M25.511 Pain in right shoulder (principal) ==